=== PATIENT | female | born 1995 | race Caucasian/White ===

== ENCOUNTER 2017-07-12 06:35 | Emergency (ER) | payer MEDICAID ==
[~2017-07-12] VITALS: Ht 160 cm; Wt 73.7 kg
[2017-07-12 06:40] VITALS: Ht 160 cm; Wt 73.7 kg
[2017-07-12 07:39] LABS: BASOPHIL % 0.3 % (0-2); PLATELET COUNT 222 x10^3mcL (130-400); RED CELL DISTRIBUTION WIDTH 13.1 % (11.5-14.5)
[2017-07-12 07:58] LABS: microscopic required? YES; urine erythrocyte NEGATIVE (NEGATIVE)
[2017-07-12 08:20] VITALS: BP 112/62
== END 2017-07-12 09:10 | disposition home or self-care (01) ==
LOC: ED 06:35
PROVIDERS: Emergency Medicine
DX: O23.41 Unspecified infection of urinary tract in pregnancy, first trimester (principal); Z3A.01 Less than 8 weeks gestation of pregnancy
CPT/HCPCS: 36415

== ENCOUNTER 2017-11-04 16:45 | Emergency (ER) | payer OTHER ==
[~2017-11-04] VITALS: Ht 157.5 cm; Wt 75.3 kg
[2017-11-04 16:50] VITALS: Ht 157.5 cm; Wt 75.3 kg
[2017-11-04 20:23] VITALS: BP 116/59
== END 2017-11-04 20:23 | disposition home or self-care (01) ==
LOC: ED 16:45
DX: J98.01 Acute bronchospasm (principal); R10.30 Lower abdominal pain, unspecified; N91.2 Amenorrhea, unspecified

== ENCOUNTER 2017-12-13 09:54 | Emergency (ER) | payer OTHER ==
[~2017-12-13] VITALS: Ht 157.5 cm; Wt 75.7 kg
[2017-12-13 10:02] VITALS: Ht 157.5 cm; Wt 75.7 kg
[2017-12-13 10:36] VITALS: BP 116/56
== END 2017-12-13 10:36 | disposition home or self-care (01) ==
LOC: ED 09:54
DX: L60.0 Ingrowing nail (principal)

== ENCOUNTER 2017-12-31 15:33 | Emergency (ER) | payer OTHER ==
[~2017-12-31] VITALS: Ht 157.5 cm; Wt 75.8 kg
[2017-12-31 15:51] VITALS: Ht 157.5 cm; Wt 75.8 kg
[2017-12-31 17:52] LABS: UA SPECIFIC GRAVITY 1.025 (1.005-1.035); microscopic required? YES; urine erythrocyte 1+ (NEGATIVE)
[2017-12-31 21:00] VITALS: BP 135/76
== END 2017-12-31 21:00 | disposition home or self-care (01) ==
LOC: ED 15:33
PROVIDERS: Emergency Medicine
PROC: BU46ZZZ Ultrasonography of Uterus (ICD-10-PCS; principal; 2017-12-31)
DX: N39.0 Urinary tract infection, site not specified (principal); N91.2 Amenorrhea, unspecified